=== PATIENT | male | born 2000 | race Caucasian/White ===

== ENCOUNTER 2019-01-04 17:40 | Emergency (ER) | payer BC ==
[2019-01-04] MEDS ORDERED: Diphtheria,Pertussis(Acell),Tetanus Vaccine 0.5 ML Syringe IM ONE (19:18)
--- NOTE | 2019-01-04 19:36 | EDM.PDOC ---
ED HPI GENERAL MEDICAL PROBLEM - General Chief Complaint: Laceration Stated Complaint: R MIDDLE FINGER LAC Time Seen by Provider: 01/04/19 19:10 Source of Information: Reports: Patient History Limitations: Reports: No Limitations - History of Present Illness INITIAL COMMENTS - FREE TEXT/NARRATIVE: 18-year-old male presents for an injury to the right hand distal middle finger. Injury occurred while at work today around noon. States that he sliced the distal tip of his finger on a Car door. Reports there was a flap that he has since removed. He now has a avulsion to that distal fingertip. Bleeding is controlled upon arrival to the ER. His hands are quite dirty. Works at [employer]. Patient is right-handed. He does not know his last tetanus. Onset: Today Location: Reports: Upper Extremity, Right Right Finger-Middle Pain Score (Numeric/FACES): 1 - Related Data Allergies Allergy/AdvReac Type Severity Reaction Status Date / Time No Known Allergies Allergy Verified 01/04/19 17:49 Home Meds: Home Meds Cetirizine [ZyrTEC] 10 mg PO DAILY 01/04/19 [History] Past Medical History Respiratory History: Reports: Asthma Other Respiratory History: Allergy induced asthma Musculoskeletal History: Reports: Other (See Below) Other Musculoskeletal History: Scoliosis - Past Surgical History HEENT Surgical History: Reports: Tonsillectomy Social & Family History - Tobacco Use Years of Tobacco use: 1 - Caffeine Use Caffeine Use: Reports: Energy Drinks - Recreational Drug Use Recreational Drug Use: No ED ROS GENERAL - Review of Systems Review Of Systems: ROS reveals no pertinent complaints other than HPI. ED EXAM, SKIN/RASH Exam: See Below Exam Limited By: No Limitations General Appearance: Alert, WD/WN, No Apparent Distress Respiratory/Chest: No Respiratory Distress Cardiovascular: Normal Peripheral Pulses Peripheral Pulses: 2+: Radial (R) Neurological: Alert, Oriented, Normal Cognition Psychiatric: Normal Affect, Normal Mood Skin: Warm, Dry, Normal Color, Wound/Incision (approximately 1cm x 0.5cm skinavulsion to the right hand distal 3rd finger, bleeding controlled) Location, Skin: Upper Extremity, Right Course - Vital Signs Last Recorded V/S: Last Vital Signs Temp 97.4 F 01/04/19 17:50 Pulse 91 01/04/19 17:50 Resp 18 01/04/19 17:50 BP 143/86 H 01/04/19 17:50 Pulse Ox 97 01/04/19 17:50 - Orders/Labs/Meds Orders: Active Orders 24 hr Category Date Time Status Vaccines to be Administered [RC] PER UNIT ROUTINE Care 01/04/19 19:18 Active Meds: Medications Discontinued Medications Generic Name Dose Route Start Last Admin Trade Name Jessenia PRN Reason Stop Dose Admin Diphtheria/Tetanus/Acell Pertussis 0.5 ml 01/04/19 19:18 01/04/19 19:34 Adacel IM 01/04/19 19:19 0.5 ml .ONCE ONE Administration - Re-Assessments/Exams Free Text/Narrative Re-Assessment/Exam: 01/04/19 19:25 Unfortunately, there is nothing to suture. We'll clean the wound and update his tetanus. Discharge instructions as documented. Departure - Departure Time of Disposition: 19:31 Disposition: Home, Self-Care 01 Condition: Good Clinical Impression: Skin avulsion - Discharge Information *PRESCRIPTION DRUG MONITORING PROGRAM REVIEWED*: No *COPY OF PRESCRIPTION DRUG MONITORING REPORT IN PATIENT LAURY: No Instructions: Deep Skin Avulsion Referrals: PCP,None [Primary Care Provider] - Forms: ED Department Discharge Additional Instructions: Wash the wound with gentle soap and water twice a day. Apply antibacterial such as Neosporin or bacitracin to the wound. Keep the wound covered in situations where it may become dirty. Otherwise leave open to air as much as possible. your tetanus was updated today. this is good for the next 10 days. monitor the wound for signs of infection such as increased swelling, pus or redness. Present to clinic or the ER should these develop. Please return to ER if your symptoms change or worsen. - My Orders Last 24 Hours: My Active Orders 01/04/19 19:18 Vaccines to be Administered [RC] PER UNIT ROUTINE - Assessment/Plan Last 24 Hours: My Active Orders 01/04/19 19:18 Vaccines to be Administered [RC] PER UNIT ROUTINE
== END 2019-01-04 19:45 | disposition home or self-care (01) ==
LOC: JD.ED 17:40
DX: S61.212A Laceration without foreign body of right middle finger without damage to nail, initial encounter (principal); Z23 Encounter for immunization; W22.8XXA Striking against or struck by other objects, initial encounter; Y99.0 Civilian activity done for income or pay
CPT/HCPCS: 90471; 90700; 99282

== ENCOUNTER 2020-03-28 02:27 | Emergency (ER) | payer BC ==
[2020-03-28] MEDS ORDERED: Ondansetron 4 MG Tab.DIS PO ONE (04:11)
[2020-03-28] MEDS ORDERED: Orphenadrine 100 MG Tab.ER PO STA (04:11)
[2020-03-28] MEDS ORDERED: Ibuprofen 600 MG Tab PO ONE (04:11)
--- NOTE | 2020-03-28 04:17 | EDM.PDOC ---
ED HPI GENERAL MEDICAL PROBLEM - General Chief Complaint: Headache Stated Complaint: HEADACHE/NAUSEA/VOMITING Time Seen by Provider: 03/28/20 03:55 Source of Information: Reports: Patient History Limitations: Reports: No Limitations - History of Present Illness INITIAL COMMENTS - FREE TEXT/NARRATIVE: Mr. Coronel is a very pleasant 19-year-old man who now presents to the ED with a headache. He states that bumped the back of his head at work around 18:00 last evening. He states that it did not initially hurt, but when he woke up around 01:00 this morning, the pain was much more severe. He has pain felt behind both of his eyes into the back of his head. He describes the pain as a pressure, dull throb sensation. He also developed nausea and vomiting around 01:00. He reports photophobia, but no phonophobia. No visual changes, such as blurry vision, wavy lines, or flashing lights. No neurologic symptoms, such as tingling, numbness, or weakness. The patient states that he gets similar headaches about once a month, which are usually successfully treated with Tylenol and hydration. He states that he has never had to go to the ED for his headaches previously. He states that he took 2 tablets of Tylenol 500 mg around 01:00, but his headache did not improve, therefore he came to the ED. Here in the ED, the patient is found to be hemodynamically stable, afebrile, saturating 98% on room air. Other than tonight's headache, nausea, vomiting, and photophobia, the patient denies having a recent fever, chills, sore throat, ear pain, nasal or sinus congestion, cough, dyspnea, chest pain, palpitations, constipation, diarrhea, abdominal pain, urinary symptoms, recent weight gain or weight loss, recent bloody bowel movements or black bowel movements, recent joint aches, or rashes. The patient does not have a PCP. Headache Pain Score (Numeric/FACES): 6 - Related Data Allergies Allergy/AdvReac Type Severity Reaction Status Date / Time No Known Allergies Allergy Verified 03/28/20 02:51 Home Meds: Home Meds Cetirizine [ZyrTEC] 10 mg PO DAILY 01/04/19 [History] Ondansetron [Zofran ODT] 1 tab PO Q8H PRN #10 tab.dis 03/28/20 [Rx] Orphenadrine [Norflex] 1 tab PO Q12H PRN #14 tab.er 03/28/20 [Rx] Past Medical History HEENT History: Reports: Allergic Rhinitis Musculoskeletal History: Reports: Back Pain, Chronic (due to scoliosis) - Past Surgical History HEENT Surgical History: Reports: Adenoidectomy, Tonsillectomy Social & Family History - Tobacco Use Smoking Status *Q: Never Smoker Tobacco Use Within Last Twelve Months: Smokeless Tobacco (Quit chewing 1 can/month in November 2019, after 1.5 yrs use) - Caffeine Use Caffeine Use: Reports: Energy Drinks - Alcohol Use Alcohol Use History: No - Recreational Drug Use Recreational Drug Use: No - Living Situation & Occupation Living situation: Reports: Single, with Significant Other (Fianc) 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 - Physical Exam Exam: See Below Exam Limited By: No Limitations General Appearance: Alert, WD/WN, No Apparent Distress Eye Exam: Bilateral Eye: EOMI, Normal Inspection, PERRL Ears: Normal External Exam, Normal Canal, Hearing Grossly Normal, Normal TMs Nose: Normal Inspection, Normal Mucosa, No Blood Throat/Mouth: Normal Inspection, Normal Lips, Normal Teeth, Normal Gums, Normal Oropharynx, Normal Voice, No Airway Compromise Head Exam: Atraumatic, Normocephalic, Other (Reproducible tenderness to palpation of the left occiput) Neck: Normal Inspection, Supple, Non-Tender, Full Range of Motion Respiratory/Chest: No Respiratory Distress, Lungs Clear, Normal Breath Sounds, No Accessory Muscle Use Cardiovascular: Normal Peripheral Pulses, Regular Rate, Rhythm, No Edema, No Gallop, No JVD, No Murmur, No Rub GI/Abdominal: Normal Bowel Sounds, Soft, Non-Tender, No Organomegaly, No D istention, No Abnormal Bruit, No Mass (Male) Exam: Deferred Rectal (Males) Exam: Deferred Neuro Exam (Abbreviated): Alert, Oriented, CN II-XII Intact, Normal Cognition, No Motor/Sensory Deficits Back Exam: Normal Inspection, Full Range of Motion, NT Extremities: Normal Inspection, Normal Range of Motion, No Pedal Edema, Normal Capillary Refill Psychiatric: Normal Affect Skin Exam: Warm, Dry, Intact, Normal Color, No Rash Course - Vital Signs Last Recorded V/S: Last Vital Signs Temp 36.1 C 03/28/20 02:46 Pulse 83 03/28/20 02:46 Resp 16 03/28/20 02:46 BP 137/80 03/28/20 02:46 Pulse Ox 98 03/28/20 02:46 - Orders/Labs/Meds Meds: Medications Discontinued Medications Generic Name Dose Route Start Last Admin Trade Name Jessenia PRN Reason Stop Dose Admin Ibuprofen 600 mg 03/28/20 04:11 Motrin PO 03/28/20 04:12 ONETIME ONE Ondansetron HCl 4 mg 03/28/20 04:11 03/28/20 04:18 Zofran Odt PO 03/28/20 04:12 4 mg ONETIME ONE Administration Orphenadrine Citrate 100 mg 03/28/20 04:11 Norflex PO 03/28/20 04:12 ONETIME STA - Re-Assessments/Exams Free Text/Narrative Re-Assessment/Exam: 03/28/20 04:12 As above, the patient has a headache felt behind his eyes and in the back of his head, along with photophobia, nausea and vomiting. This is a recurrent headache, usually treated with acetaminophen. On examination tonight, he has reproducible tenderness to palpation along the left occiput, and his neurologic examination is completely normal. I do not see an indication for an emergency CT of the head without contrast. I will treat for a tension type headache with oral Norflex, ibuprofen, and Zofran, and I will discharge him home with prescriptions for Norflex and Zofran, which he can take with [id number] ibuprofen. Departure - Departure Time of Disposition: 04:13 Disposition: Home, Self-Care 01 Condition: Good Clinical Impression: Tension type headache - Discharge Information *PRESCRIPTION DRUG MONITORING PROGRAM REVIEWED*: Not Applicable *COPY OF PRESCRIPTION DRUG MONITORING REPORT IN PATIENT LAURY: Not Applicable Prescriptions: Orphenadrine [Norflex] 1 tab PO Q12H PRN #14 tab.er PRN Reason: Muscle Spasm Ondansetron [Zofran ODT] 1 tab PO Q8H PRN #10 tab.dis PRN Reason: Nausea/Vomiting Instructions: General Headache Without Cause, [id number] Referrals: PCP,None [Primary Care Provider] - Forms: ED Department Discharge Additional Instructions: You were seen in the emergency room after developing a headache felt behind your eyes and in the back of your head, along with nausea, vomiting, and sensitivity to light. Based on your history and physical examination, you are suffering from a tension type headache. You have been started on the muscle relaxant Norflex in the anti-nausea medicine Zofran, along with ibuprofen. Prescriptions for Norflex and Zofran have been sent to the [facility], [facility] [employer]. You may take 1 tablet of Norflex up to every 12 hours, starting this evening, 03/28/2020, as prescribed. You may dissolve 1 tablet of Zofran on your tongue up to every 8 hours, as needed for nausea/vomiting. Norflex works well with ibuprofen. We recommend that you take 3 tablets (600 mg) of [id number] ibuprofen up to every 8 hours, with food, as needed for your headache. Stay adequately hydrated. Get plenty of rest tonight in a dark, quiet place. If any other problems, please do not hesitate to return to the ER. Sepsis Event Note (ED) - Evaluation Sepsis Screening Result: No Definite Risk - Focused Exam Vital Signs: Vital Signs Temp Pulse Resp BP Pulse Ox 03/28/20 02:46 36.1 C 83 16 137/80 98
== END 2020-03-28 04:30 | disposition home or self-care (01) ==
LOC: JD.ED 02:27
DX: G44.209 Tension-type headache, unspecified, not intractable (principal); Z87.891 Personal history of nicotine dependence
CPT/HCPCS: 99283; A9270

== ENCOUNTER 2022-12-08 15:29 | Emergency (ER) | payer BC ==
[2022-12-08] MEDS ORDERED: Fluorescein 1 MG Ophth Strip EYELF ONE (16:41)
[2022-12-08] MEDS ORDERED: Proparacaine 0.5% Ophth Soln 15 ML Bottle EYELF ONE (16:41)
[2022-12-08] MEDS ORDERED: Ketorolac 0.5% Ophth Soln 5 ML Bottle EYELF PRN (17:03)
[2022-12-08] MEDS ORDERED: Ofloxacin 0.3% Ophth Soln 5 ML Bottle EYELF SCH (17:15)
[2022-12-08] MEDS ORDERED: Polymyxin B/Trimethoprim 10 ML Bottle EYELF ONE (17:25)
== END 2022-12-08 18:09 | disposition home or self-care (01) ==
LOC: JD.ED 15:29
DX: S05.02XA Injury of conjunctiva and corneal abrasion without foreign body, left eye, initial encounter (principal); J45.909 Unspecified asthma, uncomplicated; Z88.5 Allergy status to narcotic agent; Z72.0 Tobacco use; W50.0XXA Accidental hit or strike by another person, initial encounter
CPT/HCPCS: 99283; A9270; 99282; J3490

== ENCOUNTER 2024-06-23 04:22 | Emergency (ER) | payer BC ==
[2024-06-23] MEDS ORDERED: Sodium Chloride 0.9% 10 ML Syringe FLUSH PRN (04:40)
[2024-06-23 04:48] LABS: BASOPHILS PERCENT AUTO 0.3 % (0.0-1.0); EOSINOPHILS ABSOLUTE AUTO 0.1 K/mm3 (0.0-0.4); EOSINOPHILS PERCENT AUTO 0.8 % (0.0-6.0); HEMATOCRIT 49.7 % (42.0-52.0); HEMOGLOBIN 18.3 gm/dl (14.0-18.0); IMMATURE GRAN ABSOLUTE AUTO 0.05 K/mm3 (0.00-0.05); IMMATURE GRAN PERCENT AUTO 0.4 % (0.0-0.4); LYMPHOCYTES ABSOLUTE AUTO 0.5 K/mm3 (1.0-4.8); LYMPHOCYTES PERCENT AUTO 4.2 % (24.0-44.0); MEAN CORPUSCULAR HEMOGLOBIN 29.4 pg (28.0-32.0); MEAN CORPUSCULAR HGB CONC 36.8 g/dl (32.0-36.0); MEAN CORPUSCULAR VOLUME 79.8 fl (83.0-99.0); MEAN PLATELET VOLUME 10.2 fl (9.4-12.4); MONOCYTES ABSOLUTE AUTO 0.5 K/mm3 (0.0-0.8); MONOCYTES PERCENT AUTO 4.3 % (0.0-8.0); NEUTROPHILS ABSOLUTE AUTO 10.9 K/mm3 (1.8-7.7); PLATELET COUNT,PLT 219 K/mm3 (150-400); RED BLOOD CELL COUNT 6.23 M/mm3 (4.52-5.90); WHITE BLOOD CELL COUNT,WBC 12.13 K/mm3 (3.9-11.3)
[2024-06-23] MEDS: Sodium Chloride 0.9% 1,000 ML IV ONE (04:52)
[2024-06-23] MEDS: Ondansetron 4 MG/2 ML SDV IVPUSH ONE (04:53)
[2024-06-23 05:29] LABS: A/G RATIO 1.1 (1-2); ALBUMIN 4.6 g/dl (3.4-5.0); ANION GAP 16.7 (5-15); BILIRUBIN TOTAL 1.1 mg/dL (0.2-1.0); EST CRCL DRUG DOSING (CG) 117.61 mL/min; POTASSIUM,K 4.7 mEq/L (3.5-5.1); PROTEIN TOTAL,TP 8.8 g/dl (6.4-8.2)
[2024-06-23 05:38] LABS: LACTIC ACID 1.4 mmol/L (0.4-2.0)
[2024-06-23] MEDS: Metoclopramide 10 MG/2 ML SDV IVPUSH ONE (05:40)
[2024-06-23] MEDS: Iopamidol 612 MG/ML 100 ML Bottle IVPUSH ONE (05:55)
[2024-06-23 06:27] LABS: APPEARANCE,URINE CLEAR (Clear); BILIRUBIN,URINE NEGATIVE (Negative); COLOR,URINE YELLOW (Yellow); GLUCOSE,URINE NEGATIVE (Negative); KETONES,URINE NEGATIVE (Negative); LEUKOCYTE ESTERASE,URINE NEGATIVE (Negative); NITRITE,URINE NEGATIVE (Negative); OCCULT BLOOD,URINE NEGATIVE (Negative); PH,URINE 6.5 (5.0-8.0); PROTEIN,URINE NEGATIVE (Negative); UROBILINOGEN,URINE 0.2 (0.2-1.0)
== END 2024-06-23 07:25 | disposition home or self-care (01) ==
LOC: JD.ED 04:22
DX: R11.2 Nausea with vomiting, unspecified (principal); E86.0 Dehydration; R93.5 Abnormal findings on diagnostic imaging of other abdominal regions, including retroperitoneum; Z86.16 Personal history of COVID-19; Z79.899 Other long term (current) drug therapy; Z88.5 Allergy status to narcotic agent
CPT/HCPCS: 36415; 74177; 80053; 81003; 83605; 83690; 85025; 96361; 96374; 96375; 99284; J2405; J2765; J7030; Q9967